=== PATIENT | male | born 1955 | race African-American/Black ===

== ENCOUNTER 2023-10-08 13:03 | Emergency (ER) | payer MEDICARE, MEDICAID ==
[~2023-10-08] VITALS: Ht 170.2 cm; Wt 70.0 kg
[2023-10-08 13:09] VITALS: O2SAT 98
[2023-10-08 14:13] VITALS: TEMP 98
[2023-10-08 16:20] LABS: CHLORIDE 101 mEq/L (98-107); POTASSIUM 4.3 mEq/L (3.5-5.1); SODIUM 136 mEq/L (136-145)
[2023-10-08 16:21] LABS: CARBON DIOXIDE 28 mEq/L (21-32)
[2023-10-08 16:26] LABS: CREATININE 0.6 mg/dL (0.6-1.3); GLUCOSE 112 mg/dL (70-105); UREA NITROGEN BLOOD 10 mg/dL (9-23)
[2023-10-08 16:30] LABS: HEMATOCRIT. 41.5 % (42.0-52.0); HEMOGLOBIN. 13.5 g/dL (14.0-18.0); MEAN CORPUSCULAR HEMOGLOBIN 32.4 pg (28.0-32.0); MEAN CORPUSCULAR HGB CONC 32.4 g/dL (31.0-37.0); MEAN CORPUSCULAR VOLUME 100.1 fL (80.0-94.0); RED BLOOD CELL COUNT 4.15 mill/uL (4.7-6.1); RED CELL DISTRIBUTION WIDTH 13.6 % (11.6-14.6); WHITE BLOOD COUNT 4.9 x1000/uL (4.5-11.0)
[2023-10-08 16:31] LABS: DIFFERENTIAL COMMENT 1
[2023-10-08] MEDS: OLANZAPINE 10 MG/VIAL IM ONE (17:06)
[2023-10-08 18:07] LABS: MEAN PLATELET VOLUME 10.5 fl (7.4-10.4); PLATELET 263 x1000/uL (130-400)
[2023-10-08 18:14] LABS: ANISOCYTOSIS 1+; PLATELET ESTIMATE NORMAL
[2023-10-08] MEDS: DIATR MEGLU/DIATRIZOATE SOLN 30ML PO ONE (18:22)
[2023-10-08] MEDS: DIATR MEGLU/DIATRIZOATE SOLN 30ML ONE (19:21)
[2023-10-08 20:05] VITALS: BP 100/56; PULSE 70; RESP 16
== END 2023-10-08 20:30 | disposition home or self-care (01) ==
LOC: ER 13:03 → EDBEDREQTM 17:05 → EDBEDREQ 17:05 → ER 20:30
DX: K94.23 Gastrostomy malfunction (principal); E05.90 Thyrotoxicosis, unspecified without thyrotoxic crisis or storm
CPT/HCPCS: 99284; 43762; 74176; 80048; 85025; 36415; 74018; Q9963

== ENCOUNTER 2024-09-24 17:14 | Emergency (ER) | payer MEDICARE, MEDICAID ==
[~2024-09-24] VITALS: Ht 175.3 cm; Wt 50.0 kg
[~2024-09-24 17:14] MED LIST: APIX5TAB PO; DILT30TA3 PO; KEPPSOL MT
[2024-09-24 17:18] VITALS: O2SAT 98
[2024-09-24 19:09] LABS: HEMATOCRIT. 36.8 % (42.0-52.0); HEMOGLOBIN. 12.3 g/dL (14.0-18.0); MEAN PLATELET VOLUME 10.5 fl (7.4-10.4); PLATELET 172 x1000/uL (130-400); RED BLOOD CELL COUNT 3.80 mill/uL (4.7-6.1); RED CELL DISTRIBUTION WIDTH 13.2 % (11.6-14.6)
[2024-09-24 19:18] LABS: INR 1.1
[2024-09-24 19:19] LABS: UREA NITROGEN BLOOD 16 mg/dL (9-23)
[2024-09-24 19:21] LABS: CREATININE 0.5 mg/dL (0.6-1.3)
[2024-09-24 19:39] LABS: EOSINOPHILS % MANUAL 10.0 % (0.0-5.0); LYMPHOCYTES % MANUAL 40.0 % (20.0-50.0); MONOCYTES % MANUAL 15.0 % (2.0-8.0); NEUTROPHILS % MANUAL 35.0 % (45.0-75.0); PLATELET ESTIMATE NORMAL
[2024-09-24] MEDS: DIATR MEGLU/DIATRIZOATE SOLN 30ML PO ONE (19:45)
[2024-09-24] MEDS: DIATR MEGLU/DIATRIZOATE SOLN 30ML ONE (20:01)
[2024-09-24 23:05] VITALS: BP 151/88; PULSE 46; RESP 13; O2SAT 97
== END 2024-09-24 23:37 ==
LOC: ER 17:14
DX: K94.23 Gastrostomy malfunction (principal); G40.909 Epilepsy, unspecified, not intractable, without status epilepticus; R10.9 Unspecified abdominal pain; Z79.899 Other long term (current) drug therapy; Z98.890 Other specified postprocedural states
CPT/HCPCS: 99285; 80048; 85025; 85610; 85730; 86850; 86900; 86901; 36415; 74018; Q9963